=== PATIENT | female | born 1990 | race Caucasian/White ===

== ENCOUNTER 2025-03-22 14:20 | Emergency (ER) | payer OTHER ==
[~2025-03-22] VITALS: Ht 160 cm; Wt 81.7 kg
[2025-03-22] MEDS ORDERED: Ketorolac Tromethamine 15mg Vial IM ONE (18:30)
[2025-03-22] MEDS ORDERED: Robaxin750 MG PO (18:32)
== END 2025-03-22 18:59 | disposition home or self-care (01) ==
LOC: ER 14:20
DX: M54.2 Cervicalgia (principal)
CPT/HCPCS: 96372; 99282-25; A9270; J1885